=== PATIENT | male | born 1990 | race Two or more races ===

== ENCOUNTER 2019-07-29 07:57 | Emergency (ER) | payer MEDICAID ==
[~2019-07-29] VITALS: Ht 165.1 cm; Wt 113.4 kg
[2019-07-29 08:08] VITALS: BP 139/94
[2019-07-29] MEDS ORDERED: IBUPROFEN 800 MG TAB PO ONE (09:30)
== END 2019-07-29 09:40 | disposition home or self-care (01) ==
LOC: ER 08:00
DX: T22.112A Burn of first degree of left forearm, initial encounter (principal); S39.012A Strain of muscle, fascia and tendon of lower back, initial encounter; V43.52XA Car driver injured in collision with other type car in traffic accident, initial encounter; Y93.89 Activity, other specified; Y92.488 Other paved roadways as the place of occurrence of the external cause; Y99.8 Other external cause status
CPT/HCPCS: 72100